=== PATIENT | female | born 1995 | race African-American/Black ===

== ENCOUNTER 2019-12-02 14:48 | Inpatient (IN) | payer MEDICAID, SELFPAY ==
[~2019-12-02 14:48] MED LIST: Lidocaine 2% MPF 10 ML AMP (For Epidural Use) ONE
[2019-12-02 15:30] VITALS: BMI 26.1
[2019-12-02] MEDS ORDERED: Butorphanol Tartrate 1 MG/ML VIAL SLOW IVP PRN (18:29)
[2019-12-02] MEDS ORDERED: Lidocaine 1% (PF) 30 ML VIAL SC PRN ×2 (18:29→19:55)
[2019-12-02] MEDS ORDERED: NS w/ Oxytocin 10 units 500 ML IV SCH (18:29)
[2019-12-02] MEDS ORDERED: Lactated Ringer's 1,000 ML IV SCH ×2 (18:29)
[2019-12-02] MEDS ORDERED: Promethazine HCl 25 MG/ML VIAL IM PRN ×3 (18:29→20:09)
[2019-12-02] MEDS ORDERED: Ibuprofen 800 MG TAB PO PRN (18:29)
[2019-12-02] MEDS ORDERED: hydrALAZINE 20 MG/ML VIAL SLOW IVP PRN ×2 (18:29→19:55)
[2019-12-02] MEDS ORDERED: Ondansetron PF 4 MG/2 ML Vial IVP PRN ×3 (18:29→20:09)
[2019-12-02] MEDS ORDERED: HYDROcodone/Acetaminophen 5/325 mg Tablet PO PRN ×2 (18:29)
[2019-12-02] MEDS ORDERED: Fentanyl 4 mcg/Bup 0.1% Cadd 100 ML ONE (18:34)
[2019-12-02 18:44] LABS: Hemoglobin 12.4 g/dL (12.0-16.0); Mean Corpuscular HGB CONC 33.3 g/dL (32.0-36.0); Mean Corpuscular Hemoglobin 27.6 pg (27.0-31.0); Mean Corpuscular Volume 82.8 fL (78.0-98.0); Platelet Count 134 thou/uL (130-400); RBC Distribution Width 12.8 % (11.5-14.5); Red Blood Cell (RBC) Count 4.51 mill/uL (4.20-5.40); White Blood Cell (WBC) Count 11.3 thou/uL (4.8-10.8)
[2019-12-02 19:23] LABS: Syphilis Antibody Nonreactive (Nonreactive); Syphilis Antibody Index 0.03 S/CO (<1.00 Non-Reactive)
[2019-12-02 19:28] LABS: HBSAg Index 0.22 S/CO (0-0.99); Hep B Surf Ag Non-Reactive S/CO (NonReactive)
[2019-12-02] MEDS ORDERED: Penicillin G Potassium 5 MILL.UNITS VIAL ONE (19:55)
[2019-12-02] MEDS ORDERED: NS / Oxytocin 40 units/1000ml 1,000 ML IV PRN (19:55)
[2019-12-02] MEDS ORDERED: Penicillin G Potassium 5 MILL.UNITS in Sodium Chloride 0.9% 100 ML IVPB SCH (20:00)
[2019-12-02] MEDS ORDERED: Penicillin G 2.5 MILL.units 2.5 MILL.UNITS in Premix Bag 1 BAG IVPB SCH (20:00)
[2019-12-02] MEDS ORDERED: Lactated Ringer's 500 ML IV PRN (20:09)
[2019-12-02] MEDS ORDERED: Acetaminophen 325 MG TAB PO PRN (20:09)
[2019-12-02] MEDS ORDERED: diphenhydrAMINE 50 MG/ML VIAL IVP PRN (20:09)
[2019-12-02] MEDS ORDERED: ePHEDrine/0.9% NaCl/PF SYRINGE 50 mg/10 ml SLOW IVP PRN (20:09)
[2019-12-02] MEDS ORDERED: Naloxone HCl 0.4 mg/ml Vial IVP PRN ×2 (20:09)
[2019-12-02] MEDS ORDERED: Fentanyl 4 mcg/Bupivacaine 0.1% Cassette 100 ML EPIDURAL SCH (20:15)
[2019-12-02] MEDS ORDERED: Communication Order-Pharmacy FS SCH (20:15)
--- NOTE | 2019-12-02 20:31 | PRG ---
DATE OF SERVICE: I have taken over the patient's care for Dr. Muro. Of note, the patient had been noncompliant at [facility]. I did not get a group B strep culture performed. She has unknown group B strep status and can be started on penicillin per protocol for group B strep. Job ID: [id number]
[2019-12-02] MEDS ORDERED: Lidocaine 1% (PF) 30 ML VIAL ONE (21:25)
[2019-12-02] MEDS ORDERED: NS / Oxytocin 40 units/1000ml 1,000 ML ONE (21:25)
--- NOTE | 2019-12-02 21:50 | PDOC.OPDEL ---
OB Operative/Delivery Note Delivery Dr/Surgeon: angie kim Pre-Delivery Diagnosis: active labor Procedure/Post Delivery Dx: spontaneous vaginal delivery Weeks gestation: 39 Anesthesia: epidural - Findings A Sex: female Weight: 0 oz (pend) - 1 min: 0 (pend) - 5 min: 0 (pend) - Additional Findings/Plan Placenta delivered: spontaneous Repaired Obstetrical Laceration: none Estimated blood loss: <200 Compilations/Other Findings: controlled with vigarous female. no complications Post delivery plan: routine recovery
[2019-12-02] MEDS: NS / Oxytocin 40 units/1000ml 1,000 ML IV PRN ×2 (22:48→22:50)
[2019-12-03] MEDS ORDERED: Milk Of Magnesia 30 ML UDCUP PO PRN (00:03)
[2019-12-03] MEDS ORDERED: HYDROcodone/Acetaminophen 5/325 mg Tablet PO PRN ×2 (00:03)
[2019-12-03] MEDS ORDERED: Bisacodyl 10 MG SUPP PR PRN (00:03)
[2019-12-03] MEDS ORDERED: Zolpidem Tartrate 5 MG TAB PO PRN (00:03)
[2019-12-03] MEDS ORDERED: Promethazine HCl 25 MG/ML VIAL IM PRN (00:03)
[2019-12-03] MEDS ORDERED: NS / Oxytocin 40 units/1000ml 1,000 ML IV SCH (00:03)
[2019-12-03] MEDS ORDERED: hydrALAZINE 20 MG/ML VIAL SLOW IVP PRN (00:03)
[2019-12-03] MEDS ORDERED: diphenhydrAMINE 25 MG CAP PO PRN (00:03)
[2019-12-03] MEDS ORDERED: Benzocaine-Menthol 82.5 ML CAN TOP PRN (00:03)
[2019-12-03] MEDS ORDERED: Preparation H Ointment 28 GM TUBE PR PRN (00:03)
[2019-12-03] MEDS ORDERED: Ondansetron PF 4 MG/2 ML Vial IVP PRN (00:03)
[2019-12-03] MEDS ORDERED: Ibuprofen 800 MG TAB PO SCH (00:15)
--- NOTE | 2019-12-03 06:59 | PDOC.PP ---
Post Progress Note Post Day #: 1 PO intake tolerated: yes Flatus: yes Ambulation: yes Vital Signs (12 hours) Temp Pulse Resp BP Pulse Ox 12/03/19 04:45 98.1 F 67 16 104/50 L 12/03/19 01:05 98.8 F 97 16 120/67 97 Weight Weight 162 lb - Physical Examination General: NAD Cardiovascular: no m/r/g, RRR Respiratory: clear to auscultation bilaterally, non-labored breathing Abdominal: + bowel sounds, lochia, no distention Extremities: negative homans (B) Psychiatric: A&Ox3, normal affect (doing well ppd 1. routine fpc ppd 2 or 3) Result Diagrams: 12/02/19 18:32 Additional Labs: Post Labs Blood Type B POSITIVE 12/02/19 20:01 Hep Bs Antigen Non-Reactive S/CO (NonReactive) 12/02/19 18:32
[2019-12-03] MEDS ORDERED: Prenatal Vitamin 1 TAB PO SCH (09:00)
[2019-12-03] MEDS ORDERED: FLU VACC QS2019-20(6MOS UP)/PF 60 MCG/0.5 ML SYRINGE IM ONE (09:00)
[2019-12-03] MEDS ORDERED: Adacel (T-DAP) 0.5 ML SYRINGE IM ONE (09:00)
[2019-12-03] MEDS: Docusate Calcium (SURFAK) 240 MG CAP PO SCH ×2 (09:31→20:12)
[2019-12-03] MEDS: Ibuprofen 800 MG TAB PO SCH ×2 (09:31→20:14)
[2019-12-03] MEDS: Prenatal Vitamin 1 TAB PO SCH (09:31)
[2019-12-03] MEDS: Ferrous Sulfate 325 MG TAB PO SCH ×2 (09:31→20:14)
[2019-12-04] MEDS: Ibuprofen 800 MG TAB PO SCH ×3 (04:32→17:00)
--- NOTE | 2019-12-04 07:01 | PDOC.PP ---
Post Progress Note Post Day #: 2 Subjective: Patient reports feeling well this AM. Is tolerating PO, ambulating, and voiding normally. Pain well-controlled. Passing flatus but no BM yet. States bleeding is less than a period. PO intake tolerated: yes Flatus: yes Ambulation: yes Vital Signs (12 hours) Temp Pulse Resp BP Pulse Ox 12/03/19 19:18 98.7 F 73 16 96/53 L 97 Weight Weight 73.482 kg - Physical Examination General: NAD Cardiovascular: no m/r/g, RRR Respiratory: clear to auscultation bilaterally, non-labored breathing Abdominal: + bowel sounds, lochia, no distention, appropriately TTP Fundus firm & at: umbilicus Extremities: negative homans (B) Neurological: no gross focal deficits Psychiatric: A&Ox3, normal affect Result Diagrams: 12/02/19 18:32 Additional Labs: Post Labs Blood Type B POSITIVE 12/02/19 20:01 Hep Bs Antigen Non-Reactive S/CO (NonReactive) 12/02/19 18:32 (1) care following vaginal delivery Code(s): Z39.2 - ENCOUNTER FOR ROUTINE FOLLOW-UP Status: Acute - Assessment/Plan 24YO who is day #2 s/p term . day #2 s/p : - Tolerating PO. Ambulating, voiding and passing flatus. Pain well controlled. VS WNLs. Continue routine PP care. Dispo: D/c home vs. B&B today.
[2019-12-04] MEDS: Ferrous Sulfate 325 MG TAB PO SCH ×2 (08:17→17:52)
[2019-12-04 09:02] VITALS: BP 128/91; TEMP 98.4
[2019-12-04] MEDS: Docusate Calcium (SURFAK) 240 MG CAP PO SCH (13:39)
[2019-12-04] MEDS: Prenatal Vitamin 1 TAB PO SCH (13:39)
[2019-12-05] MEDS ORDERED: FLU VACC QS2019-20(6MOS UP)/PF 60 MCG/0.5 ML SYRINGE IM ONE (15:30)
== END 2019-12-04 17:50 | disposition home or self-care (01) | DRG 807 ==
LOC: L&D/OP 14:48 → L&D 20:05 → 3SW 12-03 01:21
PROVIDERS: ADMIT Student in an Organized Health Care Education/Training Program; ATTEND Student in an Organized Health Care Education/Training Program
PROC: 10E0XZZ Delivery of Products of Conception, External Approach (ICD-10-PCS; principal; 2019-12-02)
DX: O36.5930 Maternal care for other known or suspected poor fetal growth, third trimester, not applicable or unspecified (principal); Z37.0 Single live birth; Z3A.39 39 weeks gestation of pregnancy
CPT/HCPCS: 36415; 85027; 86780; 86850; 86900; 86901; 87340; 90471; 90686; 90715; G0008; J2001; J2540; J3490; Q0163